=== PATIENT | male | born 2000 | race Two or more races ===

== ENCOUNTER 2020-07-29 18:06 | Emergency (ER) | payer OTHER ==
[2020-07-29 18:19] VITALS: BP 135/80; PULSE 98; TEMP 98.5; BMI 25.2
[2020-07-29] MEDS ORDERED: ACETAMINOPHEN 325 MG TABLET (FP) PO ONE (18:49)
[2020-07-29 19:09] LABS: PH,URINE 5.5 (5.0-8.0); URINE APPEARANCE CLEAR; URINE BILIRUBIN NEGATIVE (NEGATIVE); URINE COLOR YELLOW; URINE GLUCOSE (UA) NEGATIVE (NEGATIVE); URINE KETONE TRACE (NEGATIVE); URINE LEUK ESTERASE NEGATIVE (NEGATIVE); URINE NITRITE NEGATIVE (NEGATIVE); URINE PROTEIN NEGATIVE (NEGATIVE)
== END 2020-07-29 20:43 | disposition home or self-care (01) ==
LOC: JER 18:06
DX: N50.811 Right testicular pain (principal)
CPT/HCPCS: 36415; 76870-TC; 81003; 87086; 87491; 87591; 99284-25